=== PATIENT | male | born 1950 | race Caucasian/White ===

== ENCOUNTER → 2018-02-14 | Outpatient (CLI) | payer OTHER ==
[~2018-02-14] MED LIST: AMOX1TAB64 PO; CLIN300C8 PO; DOCU-131 PO; ERGO500017 PO; FURO20TA3 PO; HYDR-3237 PO; LIDOCAINE-MPF 2%, 2ML ONE; LINE600T37 PO; LISI-167 PO; MULT-750 PO; NAPR-685 PO; NAPR-856 PO; OMNIPAQUE 300 MG/ML, 10ML VIAL ONE; OXYC-307 PO; OXYC5TAB3 PO; RIVA10TA PO; ROPivacaine/PF 0.2%, 10 ML ONE; VITAMIN C PO
== END | disposition home or self-care (01) ==
LOC: RAD 13:42
PROVIDERS: ATTEND Orthopaedic Surgery
DX: M19.011 Primary osteoarthritis, right shoulder (principal); M75.121 Complete rotator cuff tear or rupture of right shoulder, not specified as traumatic
CPT/HCPCS: 73040; 73222; J2795; J3490; Q9967

== ENCOUNTER → 2018-03-02 | Outpatient (CLI) | payer OTHER ==
[~2018-03-02] MED LIST changes: +ASCO100019 PO; -LIDOCAINE-MPF 2%, 2ML ONE; +NAPR500T8 PO; -OMNIPAQUE 300 MG/ML, 10ML VIAL ONE; -ROPivacaine/PF 0.2%, 10 ML ONE
[2018-03-02 09:51] LABS: ALBUMIN 3.9 g/dL (3.4-5.0); ANION GAP 9 mmol/L (5-15); CALCIUM 8.8 mg/dL (8.5-10.1); CHLORIDE 108 mmol/L (98-107)
[2018-03-02 09:54] LABS: ALANINE AMINOTRANSFERASE 31 U/L (12-78); ALKALINE PHOSPHATASE 66 U/L (45-117); BILIRUBIN,TOTAL 0.4 mg/dL (0.2-1.0); CREATININE 0.75 mg/dL (0.7-1.3); TOTAL PROTEIN 7.2 g/dL (6.4-8.2)
== END | disposition home or self-care (01) ==
LOC: STAR 08:56
PROVIDERS: ATTEND Orthopaedic Surgery
DX: Z01.818 Encounter for other preprocedural examination (principal); M75.121 Complete rotator cuff tear or rupture of right shoulder, not specified as traumatic; Z87.891 Personal history of nicotine dependence
CPT/HCPCS: 36415; 80053; 93005

== ENCOUNTER 2018-03-15 08:59 | Day surgery (SDC) | payer OTHER ==
[~2018-03-15] VITALS: Ht 180.3 cm; Wt 117.7 kg
[2018-03-15 09:24] VITALS: BP 152/88
[2018-03-15] MEDS ORDERED: LACTATED RINGERS 1,000 ML IV SCH (09:49)
[2018-03-15] MEDS ORDERED: MIDAZOLAM 1 MG/ML, 2ML ONE (10:57)
[2018-03-15] MEDS ORDERED: EPINEPHRINE TOPICAL SOLN 1 MG/ML, 30ML ONE (10:57)
[2018-03-15] MEDS ORDERED: BUPIVACAINE/PF-EPI 0.5% 1:200K ONE (10:57)
[2018-03-15] MEDS ORDERED: FENTANYL PF 100 MCG/2ML ONE (10:58)
[2018-03-15] MEDS ORDERED: BACITRACIN 50,000 UNIT ONE (10:58)
[2018-03-15] MEDS ORDERED: MEPERIDINE/PF 25MG/0.5ML IVPush PRN (12:00)
[2018-03-15] MEDS ORDERED: hydrALAzine 20 MG/ML, 1ML IV PRN (12:00)
[2018-03-15] MEDS ORDERED: OXYcodone 5 MG/5 ML ORAL.SOL UDC PO PRN (12:00)
[2018-03-15] MEDS ORDERED: HYDROmorphone 1 MG/ML, 1ML IV PRN (12:00)
[2018-03-15] MEDS ORDERED: FENTANYL PF 100 MCG/2ML IV PRN (12:00)
[2018-03-15] MEDS ORDERED: ACETAMINOPHEN 325 MG TABLET PO PRN (12:00)
[2018-03-15] MEDS ORDERED: LORazepam 2 MG/ML, 1ML IVPush PRN (12:00)
[2018-03-15] MEDS ORDERED: ALBUTEROL SULFATE 2.5 MG/3 ML NPPB PRN (12:00)
[2018-03-15] MEDS ORDERED: LABETALOL 5MG/ML, 20ML IV PRN (12:00)
[2018-03-15] MEDS ORDERED: DEXAMETHASONE 4 MG/ML, 1ML ONE (15:30)
[2018-03-15] MEDS ORDERED: PROPOFOL 10 MG/ML, 20ML ONE (15:30)
[2018-03-15] MEDS ORDERED: SUCCINYLCHOLINE 20 MG/ML, 10ML ONE (15:30)
[2018-03-15] MEDS ORDERED: ONDANSETRON 2MG/ML, 2ML ONE (15:30)
[2018-03-15] MEDS ORDERED: CEFAZOLIN 1,000 MG ONE (15:30)
== END 2018-03-15 16:30 | disposition home or self-care (01) ==
LOC: OUT 08:59
PROVIDERS: ATTEND Orthopaedic Surgery
DX: S46.011A Strain of muscle(s) and tendon(s) of the rotator cuff of right shoulder, initial encounter (principal); X50.0XXA Overexertion from strenuous movement or load, initial encounter; M19.011 Primary osteoarthritis, right shoulder; Y93.89 Activity, other specified; Y92.89 Other specified places as the place of occurrence of the external cause; Y99.8 Other external cause status; I10 Essential (primary) hypertension; Z98.890 Other specified postprocedural states; Z87.891 Personal history of nicotine dependence; Z72.89 Other problems related to lifestyle; Z96.659 Presence of unspecified artificial knee joint
CPT/HCPCS: 29824; 29826; 29827; 64415; C1713; J0330; J0690; J1100; J2250; J2405; J2704; J3010; J7120

== ENCOUNTER → 2018-04-12 | Outpatient (CLI) | payer OTHER ==
[2018-04-12 12:41] LABS: BASOPHILS # (AUTO) 0.07 x10^3/uL (0-0.1); BASOPHILS % (AUTO) 1 % (0-1); EOSINOPHILS # (AUTO) 0.36 x10^3/uL (0-0.4); EOSINOPHILS % (AUTO) 7 % (1-7); LYMPHOCYTES # (AUTO) 1.64 x10^3/uL (1-3.4); LYMPHOCYTES % (AUTO) 31 % (22-44); MD NO; MEAN CORPUSCULAR HEMOGLOBIN 32.3 pg (27.5-34.5); MEAN CORPUSCULAR HGB CONC 34.4 g/dL (33.2-36.2); MEAN CORPUSCULAR VOLUME 94.1 fL (81-97); MEAN PLATELET VOLUME 7.5 fL (7.4-10.4); MONOCYTES # (AUTO) 0.69 x10^3/uL (0.2-0.8); MONOCYTES % (AUTO) 13 % (2-9); NEUTROPHILS # (AUTO) 2.46 x10^3/uL (1.8-6.8); NEUTROPHILS % (AUTO) 47 % (42-75); PLATELET COUNT 254 x10^3/uL (130-400); RED BLOOD COUNT 4.54 x10^6/uL (4.38-5.82); RED CELL DISTRIBUTION WIDTH 12.5 % (9.4-14.8)
[2018-04-12 12:51] LABS: ALANINE AMINOTRANSFERASE 33 U/L (12-78); ANION GAP 7 mmol/L (5-15); CALCIUM 8.6 mg/dL (8.5-10.1); CHLORIDE 107 mmol/L (98-107); CREATININE 0.83 mg/dL (0.7-1.3); GAMMA GLUTAMYL TRANSPEPTIDASE 48 U/L (15-85)
[2018-04-12 12:54] LABS: ALKALINE PHOSPHATASE 75 U/L (45-117); BILIRUBIN,TOTAL 0.9 mg/dL (0.2-1.0); CHOL/HDL RATIO 3.2; CHOLESTEROL, TOTAL 165 mg/dL (140-239); HDL CHOL % 32 % (26-37); HDL CHOLESTEROL (DIRECT) 52 mg/dL (40-60); LDL CHOLESTEROL,CALCULATED 99 mg/dL (54-169); LDL/HDL RATIO 1.9 (0.5-3.0); TOTAL PROTEIN 7.3 g/dL (6.4-8.2); TRIGLYCERIDES 72 mg/dL (50-200); VLDL CHOLESTEROL 14 mg/dL (0-25)
[2018-04-12 13:05] LABS: HEMOGLOBIN A1C 5.5 % (4.2-6.3)
== END | disposition home or self-care (01) ==
LOC: CFH 11:12
PROVIDERS: ATTEND Family Medicine
DX: Z12.5 Encounter for screening for malignant neoplasm of prostate (principal); I10 Essential (primary) hypertension; F10.20 Alcohol dependence, uncomplicated; R73.9 Hyperglycemia, unspecified
CPT/HCPCS: 36415; 80053; 80061; 82977; 83036; 84153; 84154; 85025; G0103

== ENCOUNTER 2020-05-13 17:27 | Inpatient (IN) | payer OTHER, MEDICARE ==
[~2020-05-13] VITALS: Ht 180.3 cm; Wt 121.7 kg
[~2020-05-13 17:27] MED LIST changes: +LINE600T12 PO; -LINE600T37 PO; -RIVA10TA PO; +RIVA10TA2 PO
--- NOTE | 2020-05-13 17:44 | NUR ---
DRIVE THRU ORDER TAKER NOTE: PT TAKEN STRAIGHT TO ROOM 34 FROM TRIAGE, OXYGEN APPLIED IN TRIAGE.
[2020-05-13] MEDS ORDERED: DEXAMETHASONE 4 MG/ML, 1ML IVPush ONE (18:00)
[2020-05-13] MEDS ORDERED: DOXYCYCLINE 100 MG in DEXTROSE 5% 250 ML IV SCH (18:00)
[2020-05-13] MEDS ORDERED: CEFTRIAXONE PMX 1GM/50ML 50 ML IV ONE (18:00)
--- NOTE | 2020-05-13 18:10 | NUR ---
"I CAN'T BREATHE, I WENT TO URGENT CARE" PT REPORTS HIS HAS COVID ADMITTED HERE TO ICU. RA SAT 70%. PLACED ON NON REBREATHER UP TO 95%. CAME FROM [facility]. PT IN BED WITH CONT FLEET ADMINISTRATOR, SPO2, BP Q 30 MIN, SIDE RAILS UP X2.
[2020-05-13] MEDS ORDERED: DEXAMETHASONE 4 MG/ML, 1ML ONE (18:12)
[2020-05-13] MEDS ORDERED: CEFTRIAXONE PMX 1GM/50ML 50 ML ONE (18:12)
[2020-05-13 18:28] LABS: BASOPHILS % (AUTO) 1 % (0-1); EOSINOPHILS % (AUTO) 2 % (1-7); LYMPHOCYTES % (AUTO) 14 % (22-44); MEAN CORPUSCULAR HEMOGLOBIN 32.2 pg (27.5-34.5); MEAN CORPUSCULAR HGB CONC 35.1 g/dL (33.2-36.2); MONOCYTES % (AUTO) 14 % (2-9); NEUTROPHILS % (AUTO) 70 % (42-75); PLATELET COUNT 360 x10^3/uL (130-400); RED BLOOD COUNT 4.69 x10^6/uL (4.38-5.82); RED CELL DISTRIBUTION WIDTH 12.6 % (9.4-14.8)
[2020-05-13 18:35] LABS: MD NO
[2020-05-13 18:36] LABS: ALBUMIN 3.3 g/dL (3.4-5.0); ANION GAP 8 mmol/L (5-15); CALCIUM 8.8 mg/dL (8.5-10.1); CHLORIDE 108 mmol/L (98-107)
[2020-05-13 18:43] LABS: ALANINE AMINOTRANSFERASE 33 U/L (12-78); ALKALINE PHOSPHATASE 90 U/L (45-117); BILIRUBIN,TOTAL 1.4 mg/dL (0.2-1.0); C-REACTIVE PROTEIN, QUANT 6.62 mg/dL (0.02-0.49); CREATININE 0.69 mg/dL (0.7-1.3); TOTAL PROTEIN 7.7 g/dL (6.4-8.2)
[2020-05-13 18:46] LABS: D-DIMER (DIC) 22.39 ug/mlFEU (0.00-0.52); PROTIME 11.5 Seconds (9.6-11.5)
[2020-05-13] MEDS ORDERED: Enoxaparin 1 mg/kg protocol SQ SCH ×2 (19:30→20:00)
[2020-05-13] MEDS ORDERED: ACETAMINOPHEN 325 MG TABLET PO PRN (20:00)
[2020-05-13] MEDS ORDERED: POLYETHYLENE GLYCOL 17 GM PACKET PO PRN (20:00)
[2020-05-13] MEDS ORDERED: ASCORBIC ACID 250 MG TAB PO SCH (20:00)
[2020-05-13] MEDS ORDERED: ONDANSETRON ODT 4 MG PO PRN (20:00)
[2020-05-13] MEDS ORDERED: BISACODYL 10 MG SUPP PR PRN (20:00)
[2020-05-13] MEDS: AZITHROMYCIN 500 MG in SODIUM CHLORIDE 0.9% 250 ML IV SCH ×2 (20:00→21:27)
[2020-05-13] MEDS: CEFTRIAXONE PMX 1GM/50ML 50 ML IV SCH (20:28)
[2020-05-13] MEDS ORDERED: ASCORBIC ACID 500 MG TABLET ONE (20:47)
[2020-05-13] MEDS: ENOXAPARIN 120MG/0.8ML SQ SCH (20:54)
--- NOTE | 2020-05-13 22:22 | NUR ---
notified of CTA results. no new orders. pt given food. placed on NC 4L. VSS. wctm
[2020-05-13] MEDS: SODIUM CHLORIDE 0.9% 1,000 ML IV SCH (22:23)
[2020-05-13] MEDS ORDERED: OMNIPAQUE 350 MG/ML, 100ML BOTTLE ONE (23:42)
--- NOTE | 2020-05-13 23:44 | NUR ---
Erci (daughter) [phone]. Please call with updates.
--- NOTE | 2020-05-14 00:46 | NUR ---
PT PLACED ON HOSPITAL BED. PT BECAME SOB PLACE 6L.
--- NOTE | 2020-05-14 00:53 | NUR ---
REPORT GIVEN TO ALE TELLEZ.
[2020-05-14 01:31] VITALS: BP 124/78
[2020-05-14] MEDS: ALBUTEROL HFA 90 MCG/SPRAY INH SCH ×4 (03:45→21:04)
[2020-05-14 03:55] VITALS: BP 117/77
[2020-05-14 06:29] LABS: ALBUMIN 2.8 g/dL (3.4-5.0); CALCIUM 8.2 mg/dL (8.5-10.1); CHLORIDE 111 mmol/L (98-107)
[2020-05-14 06:34] LABS: BASOPHILS % (AUTO) 1 % (0-1); EOSINOPHILS % (AUTO) 2 % (1-7); LYMPHOCYTES % (AUTO) 18 % (22-44); MEAN CORPUSCULAR HEMOGLOBIN 32.2 pg (27.5-34.5); MEAN CORPUSCULAR HGB CONC 34.7 g/dL (33.2-36.2); MEAN PLATELET VOLUME 7.1 fL (7.4-10.4); MONOCYTES % (AUTO) 15 % (2-9); NEUTROPHILS % (AUTO) 64 % (42-75); PLATELET COUNT 324 x10^3/uL (130-400); RED BLOOD COUNT 4.07 x10^6/uL (4.38-5.82); RED CELL DISTRIBUTION WIDTH 12.6 % (9.4-14.8)
[2020-05-14] MEDS: SODIUM CHLORIDE 0.9% 1,000 ML IV SCH (06:34)
[2020-05-14 06:35] LABS: ALANINE AMINOTRANSFERASE 26 U/L (12-78); ALKALINE PHOSPHATASE 78 U/L (45-117); ANION GAP 7 mmol/L (5-15); BILIRUBIN,TOTAL 1.1 mg/dL (0.2-1.0); CREATININE 0.73 mg/dL (0.7-1.3); TOTAL PROTEIN 6.6 g/dL (6.4-8.2)
[2020-05-14 06:40] VITALS: BP 128/80
[2020-05-14 06:42] LABS: MD NO
[2020-05-14] MEDS ORDERED: REMDESIVIR 200 MG in SODIUM CHLORIDE 0.9% 250 ML IVPB ONE (07:00)
[2020-05-14] MEDS: SENNA/DOCUSATE TABLET PO SCH (08:16)
[2020-05-14] MEDS: THIAMINE 100MG TABLET PO SCH (08:16)
[2020-05-14] MEDS: DEXAMETHASONE 4 MG/ML, 1ML IVPush SCH (08:17)
[2020-05-14] MEDS: CHOLECALCIFEROL 5,000u TAB PO SCH (08:17)
[2020-05-14] MEDS: GUAIFENESIN/DM 200-20MG, 10ML UDC PO PRN ×2 (08:18→23:43)
[2020-05-14] MEDS: ZINC SULFATE 220 MG CAPSULE PO SCH (08:18)
[2020-05-14] MEDS: ASCORBIC ACID 500 MG TABLET PO SCH ×2 (08:31→17:39)
[2020-05-14] MEDS: ENOXAPARIN 120MG/0.8ML SQ SCH ×2 (08:31→21:03)
[2020-05-14 14:07] VITALS: BP 124/75
[2020-05-14] MEDS: CEFTRIAXONE PMX 1GM/50ML 50 ML IV SCH (17:42)
[2020-05-14 20:16] VITALS: BP 111/65
[2020-05-14] MEDS: MELATONIN 5 MG TABLET PO SCH (21:03)
[2020-05-14] MEDS: AZITHROMYCIN 500 MG in SODIUM CHLORIDE 0.9% 250 ML IV SCH (21:04)
[2020-05-15 01:46] VITALS: BP 138/74
[2020-05-15] MEDS: ALBUTEROL HFA 90 MCG/SPRAY INH SCH ×4 (03:57→20:55)
[2020-05-15 05:53] LABS: BASOPHILS % (AUTO) 1 % (0-1); EOSINOPHILS % (AUTO) 0 % (1-7); LYMPHOCYTES % (AUTO) 16 % (22-44); MEAN CORPUSCULAR HEMOGLOBIN 31.7 pg (27.5-34.5); MEAN CORPUSCULAR HGB CONC 34.2 g/dL (33.2-36.2); MEAN PLATELET VOLUME 7.4 fL (7.4-10.4); MONOCYTES % (AUTO) 13 % (2-9); NEUTROPHILS % (AUTO) 70 % (42-75); PLATELET COUNT 415 x10^3/uL (130-400); RED BLOOD COUNT 4.18 x10^6/uL (4.38-5.82); RED CELL DISTRIBUTION WIDTH 12.7 % (9.4-14.8)
[2020-05-15 06:01] LABS: MD NO
[2020-05-15 06:02] LABS: INTERNATIONAL NORMALIZED RATIO 1.11 (0.93-1.1); PROTHROMBIN TIME 11.8 Seconds (9.6-11.5)
[2020-05-15 06:07] LABS: ALANINE AMINOTRANSFERASE 38 U/L (12-78); ALBUMIN 2.9 g/dL (3.4-5.0); ANION GAP 9 mmol/L (5-15); CALCIUM 8.6 mg/dL (8.5-10.1); CHLORIDE 109 mmol/L (98-107); CREATININE 0.88 mg/dL (0.7-1.3)
[2020-05-15 06:09] LABS: ALKALINE PHOSPHATASE 80 U/L (45-117); BILIRUBIN,TOTAL 1.2 mg/dL (0.2-1.0); TOTAL PROTEIN 7.3 g/dL (6.4-8.2)
[2020-05-15] MEDS: DEXAMETHASONE 4 MG/ML, 1ML IVPush SCH (07:54)
[2020-05-15] MEDS: CHOLECALCIFEROL 5,000u TAB PO SCH (07:54)
[2020-05-15] MEDS: GUAIFENESIN/DM 200-20MG, 10ML UDC PO PRN ×3 (07:55→21:20)
[2020-05-15] MEDS: THIAMINE 100MG TABLET PO SCH (07:56)
[2020-05-15] MEDS: BENZONATATE 100 MG CAPSULE PO SCH ×3 (07:56→21:01)
[2020-05-15] MEDS: MORPHINE SULFATE 4 MG/ML, 1ML IVPush PRN ×3 (07:56→15:14)
[2020-05-15] MEDS: SENNA/DOCUSATE TABLET PO SCH (07:56)
[2020-05-15] MEDS: ZINC SULFATE 220 MG CAPSULE PO SCH (07:56)
[2020-05-15] MEDS: ASCORBIC ACID 500 MG TABLET PO SCH ×2 (07:57→18:19)
[2020-05-15] MEDS ORDERED: METHOCARBAMOL 750 MG TABLET PO PRN (08:00)
[2020-05-15] MEDS: REMDESIVIR 100 MG in SODIUM CHLORIDE 0.9% 250 ML IVPB SCH (08:18)
[2020-05-15] MEDS: ENOXAPARIN 120MG/0.8ML SQ SCH ×2 (08:19→21:03)
[2020-05-15 08:27] VITALS: BP 135/82
[2020-05-15 12:45] VITALS: BP 145/80
[2020-05-15] MEDS: CEFTRIAXONE PMX 1GM/50ML 50 ML IV SCH (18:15)
[2020-05-15 20:54] VITALS: BP 135/81
[2020-05-15] MEDS: AZITHROMYCIN 500 MG in SODIUM CHLORIDE 0.9% 250 ML IV SCH (21:00)
[2020-05-16 00:20] VITALS: BP 140/83
[2020-05-16] MEDS: MELATONIN 5 MG TABLET PO SCH ×2 (01:23→23:51)
[2020-05-16] MEDS: MORPHINE SULFATE 4 MG/ML, 1ML IVPush PRN ×3 (01:23→23:51)
[2020-05-16] MEDS: ALBUTEROL HFA 90 MCG/SPRAY INH SCH ×4 (04:18→20:12)
[2020-05-16 06:39] VITALS: BP 150/90
[2020-05-16] MEDS: DEXAMETHASONE 4 MG/ML, 1ML IVPush SCH (08:53)
[2020-05-16] MEDS: ZINC SULFATE 220 MG CAPSULE PO SCH (08:53)
[2020-05-16] MEDS: BENZONATATE 100 MG CAPSULE PO SCH ×3 (08:53→20:17)
[2020-05-16] MEDS: REMDESIVIR 100 MG in SODIUM CHLORIDE 0.9% 250 ML IVPB SCH (08:53)
[2020-05-16] MEDS: THIAMINE 100MG TABLET PO SCH (08:54)
[2020-05-16] MEDS: GUAIFENESIN/DM 200-20MG, 10ML UDC PO PRN ×2 (08:54→16:06)
[2020-05-16] MEDS: ASCORBIC ACID 500 MG TABLET PO SCH ×2 (08:54→16:06)
[2020-05-16] MEDS: SENNA/DOCUSATE TABLET PO SCH (08:55)
[2020-05-16] MEDS: CHOLECALCIFEROL 5,000u TAB PO SCH (08:55)
[2020-05-16] MEDS: ENOXAPARIN 120MG/0.8ML SQ SCH ×2 (09:17→21:51)
[2020-05-16 12:30] VITALS: BP 149/88
[2020-05-16] MEDS: LISINOPRIL 10 MG TABLET PO SCH (14:03)
[2020-05-16] MEDS: CEFTRIAXONE PMX 1GM/50ML 50 ML IV SCH (18:11)
[2020-05-16] MEDS: AZITHROMYCIN 500 MG in SODIUM CHLORIDE 0.9% 250 ML IV SCH (20:17)
[2020-05-16 20:58] VITALS: BP 145/65
[2020-05-17 02:17] VITALS: BP 120/80
[2020-05-17] MEDS: ALBUTEROL HFA 90 MCG/SPRAY INH SCH ×4 (03:00→20:11)
[2020-05-17 04:41] LABS: BASOPHILS % (AUTO) 0 % (0-1); EOSINOPHILS % (AUTO) 0 % (1-7); LYMPHOCYTES % (AUTO) 13 % (22-44); MEAN CORPUSCULAR HEMOGLOBIN 32.5 pg (27.5-34.5); MEAN CORPUSCULAR HGB CONC 35.3 g/dL (33.2-36.2); MEAN PLATELET VOLUME 7.3 fL (7.4-10.4); MONOCYTES % (AUTO) 11 % (2-9); NEUTROPHILS % (AUTO) 76 % (42-75); PLATELET COUNT 379 x10^3/uL (130-400); RED BLOOD COUNT 3.51 x10^6/uL (4.38-5.82); RED CELL DISTRIBUTION WIDTH 12.6 % (9.4-14.8)
[2020-05-17 04:46] LABS: D-DIMER 2.15 ug/mlFEU (0.00-0.52); INTERNATIONAL NORMALIZED RATIO 1.13 (0.93-1.1); MD NO
[2020-05-17 04:48] LABS: ALBUMIN 2.3 g/dL (3.4-5.0); ANION GAP 5 mmol/L (5-15); CALCIUM 8.1 mg/dL (8.5-10.1); CHLORIDE 107 mmol/L (98-107)
[2020-05-17 04:59] LABS: ALANINE AMINOTRANSFERASE 33 U/L (12-78); ALKALINE PHOSPHATASE 61 U/L (45-117); BILIRUBIN,TOTAL 0.8 mg/dL (0.2-1.0); TOTAL PROTEIN 6.1 g/dL (6.4-8.2)
[2020-05-17 06:24] VITALS: BP 136/80
[2020-05-17] MEDS: ZINC SULFATE 220 MG CAPSULE PO SCH (08:28)
[2020-05-17] MEDS: DEXAMETHASONE 4 MG/ML, 1ML IVPush SCH (08:28)
[2020-05-17] MEDS: LISINOPRIL 10 MG TABLET PO SCH (08:29)
[2020-05-17] MEDS: THIAMINE 100MG TABLET PO SCH (08:29)
[2020-05-17] MEDS: ASCORBIC ACID 500 MG TABLET PO SCH ×2 (08:29→15:54)
[2020-05-17] MEDS: BENZONATATE 100 MG CAPSULE PO SCH ×3 (08:29→20:10)
[2020-05-17] MEDS: SENNA/DOCUSATE TABLET PO SCH (08:30)
[2020-05-17] MEDS: CHOLECALCIFEROL 5,000u TAB PO SCH (08:30)
[2020-05-17] MEDS: REMDESIVIR 100 MG in SODIUM CHLORIDE 0.9% 250 ML IVPB SCH (08:30)
[2020-05-17] MEDS: ENOXAPARIN 120MG/0.8ML SQ SCH ×2 (08:36→20:11)
[2020-05-17] MEDS ORDERED: MAGNESIUM CITRATE 300ML ORAL SOL PO ONE (09:00)
[2020-05-17] MEDS ORDERED: ACETAMINOPHEN 325 MG TABLET PO PRN (09:00)
[2020-05-17] MEDS: SODIUM CHLORIDE 0.9% 1,000 ML IV SCH ×2 (09:32→23:18)
[2020-05-17 10:03] LABS: O2 FLOW 9 L/min
[2020-05-17] MEDS ORDERED: MORPHINE SULFATE 4 MG/ML, 1ML IVPush PRN (11:30)
[2020-05-17 12:50] VITALS: BP 111/64
[2020-05-17] MEDS: CEFTRIAXONE PMX 1GM/50ML 50 ML IV SCH (17:56)
[2020-05-17 21:10] VITALS: BP 117/64
[2020-05-17] MEDS: MELATONIN 5 MG TABLET PO SCH (23:14)
[2020-05-17] MEDS: ZOLPIDEM 5MG TABLET PO PRN (23:19)
[2020-05-18 01:50] VITALS: BP 117/72
[2020-05-18] MEDS: ALBUTEROL HFA 90 MCG/SPRAY INH SCH ×5 (03:00→20:42)
[2020-05-18 05:39] LABS: BASOPHILS % (AUTO) 1 % (0-1); EOSINOPHILS % (AUTO) 0 % (1-7); LYMPHOCYTES % (AUTO) 21 % (22-44); MEAN CORPUSCULAR HEMOGLOBIN 32.2 pg (27.5-34.5); MEAN CORPUSCULAR HGB CONC 35.1 g/dL (33.2-36.2); MEAN PLATELET VOLUME 7.5 fL (7.4-10.4); MONOCYTES % (AUTO) 10 % (2-9); NEUTROPHILS % (AUTO) 68 % (42-75); PLATELET COUNT 422 x10^3/uL (130-400); RED CELL DISTRIBUTION WIDTH 12.7 % (9.4-14.8)
[2020-05-18 05:53] LABS: ALBUMIN 2.4 g/dL (3.4-5.0); ANION GAP 6 mmol/L (5-15); CALCIUM 8.6 mg/dL (8.5-10.1); CHLORIDE 107 mmol/L (98-107)
[2020-05-18 05:57] LABS: ALANINE AMINOTRANSFERASE 35 U/L (12-78); ALKALINE PHOSPHATASE 62 U/L (45-117); BILIRUBIN,TOTAL 0.6 mg/dL (0.2-1.0); CREATININE 0.62 mg/dL (0.7-1.3); TOTAL PROTEIN 6.5 g/dL (6.4-8.2)
[2020-05-18 06:06] LABS: MD NO
[2020-05-18 06:18] VITALS: BP 132/80
[2020-05-18] MEDS: REMDESIVIR 100 MG in SODIUM CHLORIDE 0.9% 250 ML IVPB SCH (08:15)
[2020-05-18] MEDS: BENZONATATE 100 MG CAPSULE PO SCH ×3 (08:33→20:41)
[2020-05-18] MEDS: THIAMINE 100MG TABLET PO SCH (08:33)
[2020-05-18] MEDS: SENNA/DOCUSATE TABLET PO SCH (08:34)
[2020-05-18] MEDS: ASCORBIC ACID 500 MG TABLET PO SCH ×2 (08:34→13:51)
[2020-05-18] MEDS: LISINOPRIL 10 MG TABLET PO SCH (08:34)
[2020-05-18] MEDS: ZINC SULFATE 220 MG CAPSULE PO SCH (08:34)
[2020-05-18] MEDS: ENOXAPARIN 120MG/0.8ML SQ SCH ×2 (08:35→20:42)
[2020-05-18] MEDS: CHOLECALCIFEROL 5,000u TAB PO SCH (08:35)
[2020-05-18] MEDS: DEXAMETHASONE 4 MG TABLET PO SCH (08:35)
[2020-05-18 11:29] VITALS: BP 122/61
[2020-05-18] MEDS: CEFTRIAXONE PMX 1GM/50ML 50 ML IV SCH (16:42)
[2020-05-18 19:16] VITALS: BP 103/59
[2020-05-18] MEDS: ZOLPIDEM 5MG TABLET PO PRN (22:25)
[2020-05-18] MEDS: MELATONIN 5 MG TABLET PO SCH (22:25)
[2020-05-19 00:02] VITALS: BP 123/68
[2020-05-19] MEDS: ALBUTEROL HFA 90 MCG/SPRAY INH SCH ×4 (03:00→20:38)
[2020-05-19 05:38] LABS: BASOPHILS % (AUTO) 2 % (0-1); EOSINOPHILS % (AUTO) 1 % (1-7); LYMPHOCYTES % (AUTO) 26 % (22-44); MEAN CORPUSCULAR HEMOGLOBIN 31.7 pg (27.5-34.5); MEAN CORPUSCULAR HGB CONC 34.5 g/dL (33.2-36.2); MEAN PLATELET VOLUME 7.6 fL (7.4-10.4); MONOCYTES % (AUTO) 13 % (2-9); NEUTROPHILS % (AUTO) 59 % (42-75); PLATELET COUNT 443 x10^3/uL (130-400); RED BLOOD COUNT 4.07 x10^6/uL (4.38-5.82); RED CELL DISTRIBUTION WIDTH 12.4 % (9.4-14.8)
[2020-05-19 05:44] LABS: D-DIMER 2.28 ug/mlFEU (0.00-0.52); INTERNATIONAL NORMALIZED RATIO 1.11 (0.93-1.1); PROTHROMBIN TIME 11.8 Seconds (9.6-11.5)
[2020-05-19 05:45] LABS: ALBUMIN 2.5 g/dL (3.4-5.0); ANION GAP 8 mmol/L (5-15); CALCIUM 8.5 mg/dL (8.5-10.1); CHLORIDE 106 mmol/L (98-107)
[2020-05-19 05:55] LABS: ALANINE AMINOTRANSFERASE 37 U/L (12-78); ALKALINE PHOSPHATASE 61 U/L (45-117); BILIRUBIN,TOTAL 0.6 mg/dL (0.2-1.0); CREATININE 0.65 mg/dL (0.7-1.3); TOTAL PROTEIN 6.6 g/dL (6.4-8.2)
[2020-05-19 06:07] LABS: MD SCAN
[2020-05-19 07:18] VITALS: BP 133/73
[2020-05-19] MEDS: ASCORBIC ACID 500 MG TABLET PO SCH ×2 (07:55→14:44)
[2020-05-19] MEDS: ENOXAPARIN 120MG/0.8ML SQ SCH (07:55)
[2020-05-19] MEDS: LISINOPRIL 10 MG TABLET PO SCH (07:56)
[2020-05-19] MEDS: BENZONATATE 100 MG CAPSULE PO SCH ×3 (07:56→20:38)
[2020-05-19] MEDS: ZINC SULFATE 220 MG CAPSULE PO SCH (07:56)
[2020-05-19] MEDS: CHOLECALCIFEROL 5,000u TAB PO SCH (07:56)
[2020-05-19] MEDS: THIAMINE 100MG TABLET PO SCH (07:56)
[2020-05-19] MEDS: SENNA/DOCUSATE TABLET PO SCH (07:56)
[2020-05-19] MEDS: DEXAMETHASONE 4 MG TABLET PO SCH (07:57)
[2020-05-19 14:49] VITALS: BP 115/70
[2020-05-19] MEDS: CEFTRIAXONE PMX 1GM/50ML 50 ML IV SCH (17:15)
[2020-05-19] MEDS: APIXABAN 5 MG TABLET PO SCH (20:38)
[2020-05-19] MEDS: ZOLPIDEM 5MG TABLET PO PRN (20:38)
[2020-05-19] MEDS: MELATONIN 5 MG TABLET PO SCH (20:38)
[2020-05-19] MEDS: BUDESONIDE 0.5 MG/2 ML INHA INH SCH (21:00)
[2020-05-19 21:02] VITALS: BP 115/65
[2020-05-20 02:26] VITALS: BP 120/82
[2020-05-20] MEDS: ALBUTEROL HFA 90 MCG/SPRAY INH SCH ×3 (03:00→16:12)
[2020-05-20 06:26] VITALS: BP 119/75
[2020-05-20] MEDS ORDERED: DEXAMETHASONE 4 MG TABLET PO SCH (07:30)
[2020-05-20 07:39] LABS: ALBUMIN 2.6 g/dL (3.4-5.0); ANION GAP 6 mmol/L (5-15); BASOPHILS % (AUTO) 1 % (0-1); CALCIUM 8.7 mg/dL (8.5-10.1); CHLORIDE 106 mmol/L (98-107); EOSINOPHILS % (AUTO) 1 % (1-7); LYMPHOCYTES % (AUTO) 29 % (22-44); MEAN CORPUSCULAR HEMOGLOBIN 32.3 pg (27.5-34.5); MEAN CORPUSCULAR HGB CONC 35.1 g/dL (33.2-36.2); MEAN PLATELET VOLUME 7.6 fL (7.4-10.4); MONOCYTES % (AUTO) 13 % (2-9); NEUTROPHILS % (AUTO) 56 % (42-75); PLATELET COUNT 415 x10^3/uL (130-400); RED BLOOD COUNT 4.06 x10^6/uL (4.38-5.82); RED CELL DISTRIBUTION WIDTH 12.6 % (9.4-14.8)
[2020-05-20 07:58] LABS: MD NO
[2020-05-20 08:04] LABS: ALANINE AMINOTRANSFERASE 37 U/L (12-78); ALKALINE PHOSPHATASE 59 U/L (45-117); BILIRUBIN,TOTAL 0.6 mg/dL (0.2-1.0); CREATININE 0.78 mg/dL (0.7-1.3); TOTAL PROTEIN 6.5 g/dL (6.4-8.2)
[2020-05-20] MEDS ORDERED: MELA5TAB14 PO (08:45)
[2020-05-20] MEDS ORDERED: CHOL500045 PO (08:45)
[2020-05-20] MEDS ORDERED: BENZ-17 PO (08:45)
[2020-05-20] MEDS ORDERED: ASCO500T9 PO (08:45)
[2020-05-20] MEDS ORDERED: BUDE0.5A INH (08:45)
[2020-05-20] MEDS ORDERED: DEXA4TAB66 PO (08:45)
[2020-05-20] MEDS: BUDESONIDE 0.5 MG/2 ML INHA INH SCH (09:00)
[2020-05-20] MEDS: BENZONATATE 100 MG CAPSULE PO SCH ×2 (09:23→16:12)
[2020-05-20] MEDS: THIAMINE 100MG TABLET PO SCH (09:23)
[2020-05-20] MEDS: CHOLECALCIFEROL 5,000u TAB PO SCH (09:23)
[2020-05-20] MEDS: APIXABAN 5 MG TABLET PO SCH (09:23)
[2020-05-20] MEDS: SENNA/DOCUSATE TABLET PO SCH (09:23)
[2020-05-20] MEDS: ZINC SULFATE 220 MG CAPSULE PO SCH (09:23)
[2020-05-20] MEDS: LISINOPRIL 10 MG TABLET PO SCH (09:24)
[2020-05-20] MEDS: ASCORBIC ACID 500 MG TABLET PO SCH ×2 (09:24→16:12)
[2020-05-20] MEDS ORDERED: APIX5TAB PO (10:21)
[2020-05-20 11:31] VITALS: BP 136/63
[2020-05-20] MEDS: CEFTRIAXONE PMX 1GM/50ML 50 ML IV SCH (16:12)
== END 2020-05-20 18:30 | disposition home or self-care (01) | DRG 871 ==
LOC: ED 20:12 → EDIP 21:09 → 4WST 05-14 01:26
PROVIDERS: ADMIT Internal Medicine; ATTEND Internal Medicine
PROC: XW033E5 Introduction of Remdesivir Anti-infective into Peripheral Vein, Percutaneous Approach, New Technology Group 5 (ICD-10-PCS; principal; 2020-05-16)
DX: A41.9 Sepsis, unspecified organism (principal); I26.99 Other pulmonary embolism without acute cor pulmonale; J12.89 Other viral pneumonia; J96.01 Acute respiratory failure with hypoxia; U07.1 COVID-19; D68.69 Other thrombophilia; R65.20 Severe sepsis without septic shock; E55.9 Vitamin D deficiency, unspecified; E66.9 Obesity, unspecified; Z68.37 Body mass index [BMI] 37.0-37.9, adult; F10.10 Alcohol abuse, uncomplicated; I10 Essential (primary) hypertension; K59.00 Constipation, unspecified; Z79.01 Long term (current) use of anticoagulants; Z82.0 Family history of epilepsy and other diseases of the nervous system; Z82.49 Family history of ischemic heart disease and other diseases of the circulatory system; Z87.891 Personal history of nicotine dependence
CPT/HCPCS: 36415; 36600; 71045; 71275; 76705; 80053; 82728; 82803; 83605; 83615; 83735; 84100; 84145; 85025; 85049; 85379; 85384; 85610; 85730; 86140; 87040; 93005; 93306; 96365; 96366; 96375; 99285; G0378; J0456; J0696; J1100; J1650; J7060; Q9967; J2270; J7030; J7050; U0003